=== PATIENT | male | born 1960 | race African-American/Black ===

== ENCOUNTER 2017-10-07 12:51 | Emergency (ER) | payer BC ==
[2017-10-07] MEDS ORDERED: Dexamethasone IV* 4 MG/ML 5 ML VIAL (20 MG) IVPB ONE (13:35)
[2017-10-07] MEDS ORDERED: Orphenadrine Citrate IV* 30 MG/ML 2 ML VIAL IV ONE (13:35)
[2017-10-07] MEDS ORDERED: Ketorolac INJ* 30 MG/ML 1 ML VIAL IV PUSH ONE (13:35)
[2017-10-07] MEDS ORDERED: Morphine INJ* 4 MG/ML 1 ML CARPUJECT IV ONE ×2 (13:35→15:48)
[2017-10-07 13:54] LABS: Hematocrit 47 % (42-52); Hemoglobin 15.7 g/dl (14.0-18.0); Mean Corpuscular HGB Conc 34 g/dl (31-36); Mean Corpuscular Hemoglobin 28 pg (27-31); Mean Corpuscular Volume 84 fL (80-94); Mean Platelet Volume 9 um3 (7.4-10.4); Red Blood Count 5.58 10^6/ul (4.0-5.4); Red Cell Distribution Width 13 % (10.5-15); White Blood Count 9.1 10^3/ul (3.5-10.8)
[2017-10-07 14:05] LABS: Albumin 4.4 g/dL (3.2-5.2); BUN/Creatinine Ratio 14.6 (8-20); C Reactive Protein 10.2 mg/L (< 5.00); Calcium 9.6 mg/dL (8.6-10.3); EGFR African American 113.3 (>60); EGFR Non-African American 88.1 (>60); Globulin 3.3 g/dL (2-4); Potassium 3.9 mmol/L (3.5-5.0); Total Bilirubin 0.5 mg/dL (0.2-1.0); Total Protein 7.7 g/dL (6.4-8.9)
[2017-10-07 14:09] LABS: Urine Bacteria Absent (Absent); Urine Bilirubin Negative (Negative); Urine Glucose Negative (Negative); Urine Nitrite Negative (Negative)
--- NOTE | 2017-10-07 14:23 | RAD ---
INDICATION: Low back pain. COMPARISON: There are no prior studies available for comparison. TECHNIQUE: 3 views of the lumbar spine were obtained including lateral, AP and a coned-down lateral view of the lumbar sacral junction. FINDINGS: There is a mild lumbar scoliosis convex toward the left side and straightening of the lumbar spine with decrease in the normal lumbar lordosis. No fracture is seen. There is moderate to severe degenerative disc disease at the L4-L5 and L5-S1 levels. IMPRESSION: 1. STRAIGHTENING OF THE LUMBAR SPINE. 2. MODERATE TO SEVERE DEGENERATIVE DISC DISEASE.
--- NOTE | 2017-10-07 15:13 | RAD ---
INDICATION: Low back pain. COMPARISON: Comparison is made with a prior x-ray study of the lumbar spine from October 07, 2017. TECHNIQUE: Contiguous axial sections were obtained beginning above the T12 vertebra and continuing through the L5-S1 disc space. Images were reconstructed in the sagittal and coronal planes. FINDINGS: There is a mild lumbar scoliosis convex toward the left side. There is also straightening of the lumbar spine with decrease in the normal lumbar lordosis. No fracture is seen. At the L2-L3 level there is a mild broad-based disc bulge and mild hypertrophic changes within the facet joints. No significant spinal canal narrowing or neural foraminal narrowing is seen. At the L3-L4 level there is a mild broad-based disc bulge and mild hypertrophic changes within the facet joints. There is mild spinal canal narrowing. Neural foramen appear patent on both sides. At the L4-L5 level there is a moderate broad-based disc bulge with a focal right far lateral disc protrusion. There are moderate hypertrophic changes within the facet joints. There is mild spinal canal narrowing and moderate neural foraminal narrowing on the right side with probable impingement on the L4 nerve root in the foramen. This can be better evaluated with an MRI of the lumbar spine. At the L5-S1 level there is a mild broad-based disc bulge which impinges on the S1 nerve roots in the lateral recess without displacement. There are moderate hypertrophic changes within the facet joints. There is moderate to severe neural foraminal narrowing on the left side. There are nonobstructing calculi in the lower pole of the left kidney partially obscured due to motion artifact. IMPRESSION: 1. DIFFUSE DEGENERATIVE DISC DISEASE AND FACET OSTEOARTHRITIS WITH CHANGES MOST PROMINENT AT THE L4-L5 LEVEL. IF THE PATIENT'S SYMPTOMS PERSIST RECOMMEND MR IMAGING OF THE LUMBAR SPINE WITHOUT CONTRAST FOR FURTHER EVALUATION. 2. NONOBSTRUCTING LEFT RENAL CALCULI.
[2017-10-07 16:03] VITALS: BP 139/87
--- NOTE | 2017-10-11 12:35 | ED ---
Bradley Sanchez Thomas, scribed for Gary Casiano MD on 10/07/17 at 1333 . Back Pain - HPI Summary HPI Summary: The pt is a 57 y/o M referred from his chiropractor c/o back pain that began five days ago that has been worsening in the last three days. The pain radiates down his RLE. He was evaluated at [facility] urgent care three days ago and was diagnosed with sciatica. He was prescribed muscle relaxers and Vicodin. He has also been taking ibuprofen 600mg every 5-6 hours and icing his back. The pain is constant. The pain is rated 10/10. The pain is aggravated by movement, positioning, sitting, and lying on his back. The pain is alleviated by standing up. Pt denies bladder or bowel incontinence. - History of Current Complaint Chief Complaint: EDBackInjuryPain Stated Complaint: BACK PAIN Time Seen by Provider: 10/07/17 13:10 Hx Obtained From: Patient Onset/Duration: Lasting Days - 5, Still Present, Worse Since - 3 days ago Onset/Duration: Still Present Timing: Constant Severity Initially: Moderate Severity Currently: Severe Pain Intensity: 10 Pain Scale Used: 0-10 Numeric Aggravating Symptom(s): Movement, Other - positioning, sitting, lying on back Alleviating Symptom(s): Other - Standing up Associated Signs And Symptoms: Negative: Bladder Incontinence, Bowel Incontinence - Allergies/Home Medications Allergies/Adverse Reactions: Allergies Allergy/AdvReac Type Severity Reaction Status Date / Time Penicillins Allergy Nausea And Verified 07/15/16 15:05 Vomiting PMH/Surg Hx/FS Hx/Imm Hx Previously Healthy: No Endocrine/Hematology History: Reports: Hx Diabetes Cardiovascular History: Reports: Hx Hypertension Musculoskeletal History: Reports: Hx Back Problems - Cancer History Cancer Type, Location and Year: Prostate CA - Surgical History Surgery Procedure, Year, and Place: Prostate Infectious Disease History: No Infectious Disease History: Denies: Traveled Outside the [place] in Last 30 Days - Family History Known Family History: Positive: Hypertension, Diabetes, Other - Social History Alcohol Use: Occasionally Hx Substance Use: No Substance Use Type: Reports: None Hx Tobacco Use: Yes Smoking Status (MU): Light Every Day Tobacco Smoker Review of Systems Negative: Fever Negative: Other - bowel incontinence Negative: incontinence Negative: Other - back pain All Other Systems Reviewed And Are Negative: Yes Physical Exam - Summary Physical Exam Summary: VITAL SIGNS: Reviewed. GENERAL: Patient is a well-developed and nourished male who is lying comfortable in the stretcher. Patient is not in any acute respiratory distress. HEAD AND FACE: No signs of trauma. No ecchymosis, hematomas or skull depressions. No sinus tenderness. EYES: PERRLA, EOMI x 2, No injected conjunctiva, no nystagmus. EARS: Hearing grossly intact. Ear canals and tympanic membranes are within normal limits. MOUTH: Oropharynx within normal limits. NECK: Supple, trachea is midline, no adenopathy, no JVD, no carotid bruit, no c- spine tenderness, neck with full ROM. CHEST: Symmetric, no tenderness at palpation LUNGS: Clear to auscultation bilaterally. No wheezing or crackles. CVS: Regular rate and rhythm, S1 and S2 present, no murmurs or gallops appreciated. ABDOMEN: Soft, non-tender. No signs of distention. No rebound no guarding, and no masses palpated. Bowel sounds are normal. BACK: He has a right-sided sciatic pain. He does not have any urinary or bowel dysfunction. He is unable to ambulate. The only relief of pain is when he stands up. When he sits or lays on his back, his pain increases. EXTREMITIES: FROM in all major joints, no edema, no cyanosis or clubbing. NEURO: Alert and oriented x 3. No acute neurological deficits. Speech is normal and follows commands. SKIN: Dry and warm Triage Information Reviewed: Yes Vital Signs On Initial Exam: Initial Vitals Temp Pulse Resp BP Pulse Ox 98.0 F 93 16 142/98 98 10/07/17 12:59 10/07/17 12:59 10/07/17 12:59 10/07/17 12:59 10/07/17 12:59 Vital Signs Reviewed: Yes - [place] Coma Scale Coma Scale Total: 15 Diagnostics - Vital Signs Vital Signs Temp Pulse Resp BP Pulse Ox 10/07/17 12:59 98.0 F 93 16 142/98 98 - Laboratory Result Diagrams: 10/07/17 13:40 10/07/17 13:40 Lab Statement: Any lab studies that have been ordered have been reviewed, and results considered in the medical decision making process. - Radiology L-Spine XR Xray Interpretation: No Acute Changes - 1. STRAIGHTENING OF THE LUMBAR SPINE. 2. MODERATE TO SEVERE DEGENERATIVE DISC DISEASE. ED physician has reviewed this report and agrees. Radiology Interpretation Completed By: Radiologist - CT CT L-Spine CT Interpretation: No Acute Changes - 1. DIFFUSE DEGENERATIVE DISC DISEASE AND FACET OSTEOARTHRITIS WITH CHANGES MOST PROMINENT AT THE L4-L5 LEVEL. IF THE PATIENT'S SYMPTOMS PERSIST RECOMMEND MR IMAGING OF THE LUMBAR SPINE WITHOUT CONTRAST FOR FURTHER EVALUATION. 2. NONOBSTRUCTING LEFT RENAL CALCULI. ED physician has reviewed this report and agrees. CT Interpretation Completed By: Radiologist Re-Evaluation - Re-Evaluation First Eval Re-Evaluation Time: 14:31 Change: Improved Comment: The patient's back pain has improved to 2/10. Second Eval Re-Evaluation Time: 15:48 Change: Improved Comment: The patient was able to ambulate to the bathroom. Back Pain Course/Dx - Course Assessment/Plan: The pt is a 57 y/o M referred from his chiropractor c/o back pain that began five days ago that has been worsening in the last three days. The pain radiates down his RLE. He was evaluated at [facility] urgent care three days ago and was diagnosed with sciatica. He was prescribed muscle relaxers and Vicodin. He has also been taking ibuprofen 600mg every 5-6 hours and icing his back. The pain is constant. The pain is rated 10/10. The pain is aggravated by movement, positioning, sitting, and lying on his back. The pain is alleviated by standing up. Pt denies bladder or bowel incontinence. Test results are without any significant abnormalities. Urinalysis is negative for UTI. L-Spine XR shows 1. STRAIGHTENING OF THE LUMBAR SPINE. 2. MODERATE TO SEVERE DEGENERATIVE DISC DISEASE. CT L-Spine shows 1. DIFFUSE DEGENERATIVE DISC DISEASE AND FACET OSTEOARTHRITIS WITH CHANGES MOST PROMINENT AT THE L4-L5 LEVEL. IF THE PATIENT'S SYMPTOMS PERSIST RECOMMEND MR IMAGING OF THE LUMBAR SPINE WITHOUT CONTRAST FOR FURTHER EVALUATION. 2. NONOBSTRUCTING LEFT RENAL CALCULI. In the ED course, the patient was given IV fluids, Norflex, Toradol, morphine, and Decadron. After these medications, the patient was able to ambulate to the bathroom. He still had pain, but he was able to move. Therefore , since the patient has not been having urinary or fecal dysfunction, and he is able to ambulate, he will be discharged home with follow up by Dr. Martinez. The patient is hemodynamically stable and alert and oriented x3. - Diagnoses Provider Diagnoses: Back pain Discharge - Discharge Plan Condition: Stable Disposition: HOME Prescriptions: HYDROcodone/ACETAMIN 5-325 MG* [[place] 5-325 TAB*] 1 tab PO Q6H PRN #12 tab MDD 4 PRN Reason: Pain Ibuprofen TAB* [Motrin TAB* 800 MG] 800 mg PO ONCE PRN #30 tab PRN Reason: Pain Methocarbamol [Robaxin-750 MG TAB] 750 mg PO TID #12 tab methylPREDNISolone TAB* [Medrol TAB*] 4 - 8 mg PO .SEE SHAKILA #1 shakila Patient Education Materials: Back Pain (ED) Referrals: Theo Martinez MD [Medical Doctor] - 7 Days Additional Instructions: Follow up with Dr. Martinez or another neurosurgeon within a week. Return to the emergency department for any new or worsening symptoms. The documentation as recorded by the Bradley cardenas Thomas accurately reflects the service I personally performed and the decisions made by Oh marvin Walter, MD.
== END 2017-10-07 16:04 | disposition home or self-care (01) ==
LOC: ED 12:51
DX: M54.9 Dorsalgia, unspecified (principal); E11.9 Type 2 diabetes mellitus without complications; I10 Essential (primary) hypertension; M51.36 Other intervertebral disc degeneration, lumbar region; M47.816 Spondylosis without myelopathy or radiculopathy, lumbar region; N20.0 Calculus of kidney; Z85.46 Personal history of malignant neoplasm of prostate; Z88.0 Allergy status to penicillin; F17.210 Nicotine dependence, cigarettes, uncomplicated
CPT/HCPCS: 36415; 72100; 72131; 80053; 81003; 81015; 85025; 86140; 96374; 96375; 96376; 99282; J1100; J1885; J2270; J2360

== ENCOUNTER 2017-11-11 14:11 | Emergency (ER) | payer BC ==
[2017-11-11 14:42] LABS: ABS Basophils 0.1 10^3/ul (0-0.2); ABS Eosinophils 0.1 10^3/ul (0-0.6); ABS Lymphocytes 3.7 10^3/ul (1.0-4.8); ABS Monocytes 0.5 10^3/ul (0-0.8); ABS Neutrophils 4.7 10^3/ul (1.5-7.7); ABS Nucleated RBC 0.01 10^3/ul; Eosinophil % 0.6 % (0-6); Hematocrit 42 % (42-52); Hemoglobin 14.4 g/dl (14.0-18.0); Lymphocyte % 40.8 % (25-47); Mean Corpuscular HGB Conc 35 g/dl (31-36); Mean Corpuscular Hemoglobin 29 pg (27-31); Mean Corpuscular Volume 83 fL (80-94); Mean Platelet Volume 10 um3 (7.4-10.4); Nucleated Red Blood Cells % 0.1; Platelet Count 221 10^3/ul (150-450); Red Cell Distribution Width 13 % (10.5-15); White Blood Count 9.1 10^3/ul (3.5-10.8)
--- NOTE | 2017-11-11 14:57 | RAD ---
Indication: Elevated blood pressure. History of LEFT arm pain. Comparison: No relevant prior exams available on the [facility] [place] PACS for comparison. Technique: Upright AP 1432 hours Report: Clear lungs and pleural spaces. Negative for pneumothorax. The heart, pulmonary vasculature, and mediastinal contours are unremarkable. Unremarkable osseous structures and soft tissue contours. IMPRESSION: No evidence for acute intrathoracic disease.
[2017-11-11] MEDS ORDERED: NS 0.9% 1000 ML* 1,000 ML IV ONE (15:00)
[2017-11-11 15:01] LABS: EGFR Non-African American 83.7 (>60)
[2017-11-11 15:10] LABS: INR 0.89 (0.77-1.02)
[2017-11-11] MEDS ORDERED: Ketorolac INJ* 30 MG/ML 1 ML VIAL IV ONE (15:34)
[2017-11-11] MEDS ORDERED: Ketorolac INJ* 60 MG/2 ML VIAL ONE (15:42)
--- NOTE | 2017-11-11 16:37 | RAD ---
INDICATION: LEFT upper extremity pain. COMPARISON: LEFT shoulder radiographs on the same date. TECHNIQUE: Duplex ultrasound of the LEFT internal jugular, subclavian, axillary, brachial, radial, ulnar, basilic, and cephalic veins. With the exception of the non accessible subclavian vein compressibility of venous segments assessed. Augmentation and phasicity assessed throughout. REPORT: The deep LEFT internal jugular, subclavian, axial, brachial, radial, and ulnar veins are patent. The superficial basilic and cephalic veins are patent. Patency of the RIGHT internal jugular and subclavian veins documented. IMPRESSION: No evidence for LEFT upper extremity deep venous thrombosis.
--- NOTE | 2017-11-11 16:49 | RAD ---
Indication: LEFT arm pain intermittent since early October 2017. Question arthritis. Comparison: No relevant prior exams available on the [facility] [place]. Technique: Internal rotation AP, external rotation [place], scapular Y, axillary views LEFT shoulder Report: Normal acromioclavicular and glenohumeral joint alignment. Negative for fracture. Minimal acromioclavicular joint and glenohumeral joint osteophytosis. Spurring and subchondral sclerosis at the lesser tuberosity favoring chronic subscapularis tendinopathy. No calcific tendinopathy visualized. Mild glenohumeral joint space narrowing. Unremarkable soft tissue contours. IMPRESSION: Probable chronic subscapularis tendinopathy given enthesopathy at the lesser tuberosity. Mild acromioclavicular and glenohumeral joint osteoarthritis.
--- NOTE | 2017-11-11 16:53 | RAD ---
INDICATION: Intermittent LEFT arm pain since October 2017. Question arthritis. COMPARISON: No relevant prior exams available on the [facility] PACS for comparison. TECHNIQUE: AP, lateral, and oblique views LEFT elbow. REPORT: Normal articular alignment. No significant arthropathic change. Negative for joint effusion or fracture. Unremarkable soft tissue contours. IMPRESSION: Negative radiographic exam of the LEFT elbow.
--- NOTE | 2017-11-11 17:20 | ED ---
Yolanda Sanchez Julia, scribed for Peterson Hernandez MD on 11/11/17 at 1621 . Upper Extremity Pain - HPI Summary HPI Summary: This patient is a 57 year old M presenting to [facility] accompanied by with a chief complaint of constant LUE pain for past couple months. The patient rates the pain 8/10 in severity on average. Symptoms aggravated with elbow flexion extension. Symptoms mildly alleviated by muscle relaxation medication. Patient reports elevated BP for past week, back pain and sciatica secondary to vertebral disc fracture and recent changes in blood glucose levels. Patient denies neck injury or pain, sore throat, changes in appetite, nausea, and diaphoresis. Patient is concerned that he may be experiencing a CT due to arm pain and elevated BP. - History of Current Complaint Chief Complaint: EDChestPainROMI Stated Complaint: HIGH BLOOD PRESSURE/LT ARM PAIN Time Seen by Provider: 11/11/17 14:32 Hx Obtained From: Patient Mechanism Of Injury: Unknown Onset/Duration: Still Present Timing: Constant Aggravating Factor(s): Flexion, Extension Alleviating Factor(s): Other - mild relief with muscle relaxers Associated Signs & Symptoms: Positive: Other - elevated BP for past week, back pain and sciatica secondary to vertebral disc fracture and recent changes in blood glucose levels - Allergies/Home Medications Allergies/Adverse Reactions: Allergies Allergy/AdvReac Type Severity Reaction Status Date / Time Penicillins Allergy Nausea And Verified 10/15/17 13:39 Vomiting PMH/Surg Hx/FS Hx/Imm Hx Endocrine/Hematology History: Reports: Hx Diabetes - PRE Cardiovascular History: Reports: Hx Hypertension - BORERLINE ON MEDS Denies: Hx Pacemaker/ICD History: Denies: Hx Renal Disease Musculoskeletal History: Reports: Hx Back Problems Sensory History: Denies: Hx Hearing Aid Psychiatric History: Reports: Hx Panic Disorder - Cancer History Cancer Type, Location and Year: Prostate CA - Surgical History Surgery Procedure, Year, and Place: Prostate REMOVAL 2004 [facility] Infectious Disease History: No Infectious Disease History: Denies: Traveled Outside the [place] in Last 30 Days - Family History Known Family History: Positive: Hypertension, Diabetes - Social History Alcohol Use: Occasionally Hx Substance Use: No Substance Use Type: Reports: None Hx Tobacco Use: Yes Smoking Status (MU): Light Every Day Tobacco Smoker Review of Systems Negative: Skin Diaphoresis Negative: Sore Throat Positive: Other - recent elevated BP Positive: Other - negative - changes in appetite. Negative: Nausea Musculoskeletal: Other - negative - neck pain Positive: Other - LUE pain, back pain, and sciatica All Other Systems Reviewed And Are Negative: Yes Physical Exam - Summary Physical Exam Summary: General: well-appearing, no pain distress Skin: warm, color reflects adequate perfusion, dry Head: normal Eyes: EOMI, JACQUELIN ENT: normal Neck: supple, nontender Respiratory: CTA, breath sounds present Cardiovascular: RRR Abdomen: soft, nontender Bowel: present Musculoskeletal: mild tenderness of L upper inner arm, strength/ROM intact Neurological: normal, sensory/motor intact, A&O x3 Psychological: affect/mood appropriate Triage Information Reviewed: Yes Vital Signs On Initial Exam: Initial Vitals Temp Pulse Resp BP Pulse Ox 98.8 F 90 18 150/96 98 11/11/17 14:19 11/11/17 14:19 11/11/17 14:19 11/11/17 14:19 11/11/17 14:19 Vital Signs Reviewed: Yes - [place] Coma Scale Coma Scale Total: 15 Diagnostics - Vital Signs Vital Signs Temp Pulse Resp BP Pulse Ox 11/11/17 15:59 79 15 97 11/11/17 15:30 84 16 141/93 99 11/11/17 15:00 152/93 11/11/17 14:52 97.6 F 74 18 134/76 96 11/11/17 14:39 99 11/11/17 14:28 89 10 150/96 98 11/11/17 14:22 91 98 11/11/17 14:19 98.8 F 90 18 150/96 98 - Laboratory Lab Results: Lab Results 11/11/17 11/11/17 11/11/17 Range/Units 14:35 14:35 14:35 WBC (3.5-10.8) 10^3/ul RBC (4.0-5.4) 10^6/ul Hgb (14.0-18.0) g/dl Hct (42-52) % MCV (80-94) fL MCH (27-31) pg MCHC (31-36) g/dl RDW (10.5-15) % Plt Count (150-450) 10^3/ul MPV (7.4-10.4) um3 Neut % (Auto) (38-83) % Lymph % (Auto) (25-47) % [place] % (Auto) (1-9) % Eos % (Auto) (0-6) % Baso % (Auto) (0-2) % Absolute Neuts (auto) (1.5-7.7) 10^3/ul Absolute Lymphs (auto) (1.0-4.8) 10^3/ul Absolute Monos (auto) (0-0.8) 10^3/ul Absolute Eos (auto) (0-0.6) 10^3/ul Absolute Basos (auto) (0-0.2) 10^3/ul Absolute Nucleated RBC 10^3/ul Nucleated RBC % INR (Anticoag Therapy) 0.89 (0.77-1.02) APTT 30.3 (26.0-36.3) seconds D-Dimer, Quantitative < 200 (Less Than 230) ng/mL Sodium 133 (133-145) mmol/L Potassium 3.7 (3.5-5.0) mmol/L Chloride 100 L (101-111) mmol/L Carbon Dioxide 24 (22-32) mmol/L Anion Gap 9 (2-11) mmol/L BUN 11 (6-24) mg/dL Creatinine 0.93 (0.67-1.17) mg/dL Est GFR ( Amer) 107.7 (>60) Est GFR (Non-Af Amer) 83.7 (>60) BUN/Creatinine Ratio 11.8 (8-20) Glucose 347 H (70-100) mg/dL Lactic Acid (0.5-2.0) mmol/L Calcium 8.9 (8.6-10.3) mg/dL Magnesium 1.9 (1.9-2.7) mg/dL Total Bilirubin 0.40 (0.2-1.0) mg/dL AST 22 (13-39) U/L ALT 25 (7-52) U/L Alkaline Phosphatase 79 (34-104) U/L Total Creatine Kinase 223 (10-223) U/L CK-MB (CK-2) 1.3 (0.6-6.3) ng/mL Troponin I 0.00 (<0.04) ng/mL C-Reactive Protein 14.49 H (< 5.00) mg/L B-Natriuretic Peptide 22 ( - 100) pg/mL Total Protein 6.9 (6.4-8.9) g/dL Albumin 3.9 (3.2-5.2) g/dL Globulin 3.0 (2-4) g/dL Albumin/Globulin Ratio 1.3 (1-3) Lipase 31 (11.0-82.0) U/L TSH 1.07 (0.34-5.60) mcIU/mL Thyroxine (T4) 8.23 (6.09-12.23) mcg/mL 11/11/17 11/11/17 Range/Units 14:35 14:35 WBC 9.1 (3.5-10.8) 10^3/ul RBC 5.00 (4.0-5.4) 10^6/ul Hgb 14.4 (14.0-18.0) g/dl Hct 42 (42-52) % MCV 83 (80-94) fL MCH 29 (27-31) pg MCHC 35 (31-36) g/dl RDW 13 (10.5-15) % Plt Count 221 (150-450) 10^3/ul MPV 10 (7.4-10.4) um3 Neut % (Auto) 51.6 (38-83) % Lymph % (Auto) 40.8 (25-47) % [place] % (Auto) 5.9 (1-9) % Eos % (Auto) 0.6 (0-6) % Baso % (Auto) 1.1 (0-2) % Absolute Neuts (auto) 4.7 (1.5-7.7) 10^3/ul Absolute Lymphs (auto) 3.7 (1.0-4.8) 10^3/ul Absolute Monos (auto) 0.5 (0-0.8) 10^3/ul Absolute Eos (auto) 0.1 (0-0.6) 10^3/ul Absolute Basos (auto) 0.1 (0-0.2) 10^3/ul Absolute Nucleated RBC 0.01 10^3/ul Nucleated RBC % 0.1 INR (Anticoag Therapy) (0.77-1.02) APTT (26.0-36.3) seconds D-Dimer, Quantitative (Less Than 230) ng/mL Sodium (133-145) mmol/L Potassium (3.5-5.0) mmol/L Chloride (101-111) mmol/L Carbon Dioxide (22-32) mmol/L Anion Gap (2-11) mmol/L BUN (6-24) mg/dL Creatinine (0.67-1.17) mg/dL Est GFR ( Amer) (>60) Est GFR (Non-Af Amer) (>60) BUN/Creatinine Ratio (8-20) Glucose (70-100) mg/dL Lactic Acid 1.9 (0.5-2.0) mmol/L Calcium (8.6-10.3) mg/dL Magnesium (1.9-2.7) mg/dL Total Bilirubin (0.2-1.0) mg/dL AST (13-39) U/L ALT (7-52) U/L Alkaline Phosphatase (34-104) U/L Total Creatine Kinase (10-223) U/L CK-MB (CK-2) (0.6-6.3) ng/mL Troponin I (<0.04) ng/mL C-Reactive Protein (< 5.00) mg/L B-Natriuretic Peptide ( - 100) pg/mL Total Protein (6.4-8.9) g/dL Albumin (3.2-5.2) g/dL Globulin (2-4) g/dL Albumin/Globulin Ratio (1-3) Lipase (11.0-82.0) U/L TSH (0.34-5.60) mcIU/mL Thyroxine (T4) (6.09-12.23) mcg/mL Result Diagrams: 11/11/17 14:35 11/11/17 14:35 Lab Statement: Any lab studies that have been ordered have been reviewed, and results considered in the medical decision making process. - Radiology L Elbow XR Radiology Interpretation Completed By: Radiologist - Negative radiographic exam of the LEFT elbow. ED Physician has reviewed this report. L Shoulder XR Radiology Interpretation Completed By: Radiologist - Probable chronic subscapularis tendinopathy given enthesopathy at the lesser tuberosity. Mild acromioclavicular and glenohumeral joint osteoarthritis. ED Physician has reviewed this report. CXR Radiology Interpretation Completed By: Radiologist - No evidence for acute intrathoracic disease. ED Physician has reviewed this report. - EKG 14:14 Cardiac Rate: NL EKG Rhythm: Sinus Rhythm - at 90 ST Segment: Normal Ectopy: None - Additional Comments Diagnostic Additional Comments: Venous Doppler US reveals No evidence for LEFT upper extremity deep venous thrombosis. ED physician has reviewed this report. Course/Dx - Course Course Of Treatment: LEFT ARM PAIN DECREASED IN ED AFTER TORADOL. DISCUSSED ADMISSION FOR CARDIAC EVAL. PATIENT DECLINED ADMISSION. HE HAS A STRESS TEST SCHEDULED FOR 11/20/17 WITH HIS PMD. F/U PMD; RETURN IF WORSE. - Diagnoses Provider Diagnoses: Left arm pain, Hyperglycemia, unspecified, Low back pain, Hypertension Discharge - Discharge Plan Condition: Stable Disposition: HOME Patient Education Materials: Hypertension (ED), Chronic Back Pain (ED), Diabetic Hyperglycemia (ED), Arm Pain (ED) Referrals: Jamie Hopkins MD [Primary Care Provider] - Additional Instructions: FOLLOW UP WITH YOUR DOCTOR. RETURN TO THE EMERGENCY DEPARTMENT FOR ANY WORSENING OF YOUR CONDITION; CHEST PAIN, SHORTNESS OF BREATH, YOU FEEL ILL, WEAKNESS, NUMBNESS, DIFFICULTY CONTROLLING BOWEL OR BLADDER OR QUESTIONS OR CONCERNS. The documentation as recorded by the Yolanda cardenas Julia accurately reflects the service I personally performed and the decisions made by me, Peterson Hernandez MD.
[2017-11-11] MEDS ORDERED: oxyCODONE/Acetamin 5/325 MG* TAB PO ONE (17:22)
[2017-11-11] MEDS ORDERED: Cyclobenzaprine TAB* 10 MG PO ONE (17:23)
[2017-11-11 17:28] LABS: Urine Appearance Clear; Urine Blood Negative (Negative); Urine Color Yellow; Urine Ketones Negative (Negative); Urine Protein 1+(30 mg/dL) (Negative); Urine Specific Gravity 1.024 (1.010-1.030); Urine Urobilinogen Negative (Negative)
[2017-11-11 17:49] VITALS: BP 132/81
== END 2017-11-11 17:48 | disposition home or self-care (01) ==
LOC: ED 14:11
DX: M79.602 Pain in left arm (principal); R73.9 Hyperglycemia, unspecified; I10 Essential (primary) hypertension; M54.9 Dorsalgia, unspecified; F17.210 Nicotine dependence, cigarettes, uncomplicated; M54.5 Low back pain
CPT/HCPCS: 36415; 71045; 80053; 81003; 81015; 82550; 82553; 83605; 83690; 83735; 83880; 84436; 84443; 84484; 85025; 85379; 85610; 85730; 86140; 93005; 96374; 99283; A9270-GY; J1885

== ENCOUNTER 2019-01-18 09:31 | Emergency (ER) | payer BC ==
--- NOTE | 2019-01-18 09:37 | UC ---
Elbow Pain - HPI Summary HPI Summary: 58 yo male presents with RIGHT elbow pain. He is right handed. He tells me that over the last 2 months he has been having worsening left lateral elbow pain. Pain worse with lifting and movement. Better with rest and naproxen. About 4 months ago he started doing crossfit and has been very active with this almost every day of the week. He bought an elbow brace and has been using this while working out, but has had little relief. 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 Denies specific injury, numbness, tingling. - History of Current Complaint Stated Complaint: ELLBOW PAIN Time Seen by Provider: 01/18/19 09:36 Hx Obtained From: Patient Severity Initially: Moderate Severity Currently: Severe Pain Intensity: 8 Pain Scale Used: 0-10 Numeric - Allergies/Home Medications Allergies/Adverse Reactions: Allergies Allergy/AdvReac Type Severity Reaction Status Date / Time MS Penicillins [Penicillins] Allergy Nausea And Verified 10/15/17 13:39 Vomiting Home Medications: Home Medications Acetaminophen [Tylenol] 650 mg PO Q6H PRN 01/18/19 [History Confirmed 01/18/19] Cartilage/Collagen/Bor/Hyalur [Joint Health Tablet] 1 tab PO 01/18/19 [History] Menthol [Sore Muscle Rub] 1 applic TOPICAL BID PRN 01/18/19 [History Confirmed 01/18/19] Naproxen [Naprosyn 500 mg tab] 500 mg PO BID PRN 01/18/19 [History Confirmed 08/29] PMH/Surg Hx/FS Hx/Imm Hx GI/ History: Gastroesophageal Reflux - Surgical History Surgical History: Yes Surgery Procedure, Year, and Place: Prostate REMOVAL 2004 [place] - Family History Known Family History: Positive: Hypertension, Diabetes, Other - Social History Alcohol Use: Occasionally Substance Use Type: None Smoking Status (MU): Light Every Day Tobacco Smoker - Immunization History Most Recent Tetanus Shot: last 10 yrs Review of Systems All Other Systems Reviewed And Are Negative: Yes Constitutional: Positive: Negative Skin: Positive: Negative Respiratory: Positive: Negative Cardiovascular: Positive: Negative Neurovascular: Positive: Negative Musculoskeletal: Positive: Other: - Right elbow pain Neurological: Positive: Negative Psychological: Positive: Negative Physical Exam - Summary Physical Exam Summary: GENERAL: NAD. WDWN. No pain distress. SKIN: No rashes, sores, lesions, or open wounds. CHEST: No accessory muscle use. Breathing comfortably and in no distress. CV: Pulses intact radial and ulnar. Cap refill <2seconds MSK: RIGHT ELBOW: FROM. Lateral epicondyle with mild edema and moderate TTP. Pain worse with middle finger extension against resistance. Positive chair lift test. Strength 5/5 including change person strength. NEURO: Alert. Sensations intact hand and all fingers. PSYCH: Age appropriate behavior. Triage Information Reviewed: Yes Vital Signs: Vital Signs: Temp Pulse Resp BP Pulse Ox 97.1 F 69 16 171/97 99 01/18/19 09:39 01/18/19 09:39 01/18/19 09:39 01/18/19 09:39 01/18/19 09:39 Vital Signs Reviewed: Yes Elbow Pain Course/Dx - Course Course Of Treatment: Suspect lateral epicondylitis that is being chronically inflamed due to his workout schedule. I had a long conversation with the pt that his pain will likely continue until he is able to rest and apply ice to this - including refraining from the gym/heavy lifting. Advised to continue naproxen and try an OTC epicondylitis brace. He says he will take the next 7-10 days off from the gym and therefore will try him with a short course of steroids to decrease inflammation. F/u with [facility] if no improvement. - Differential Dx/Diagnosis Provider Diagnosis: Lateral epicondylitis of elbow Discharge - Sign-Out/Discharge Documenting (check all that apply): Patient Departure All imaging exams completed and their final reports reviewed: No Studies - Discharge Plan Condition: Stable Disposition: HOME Prescriptions: RX: predniSONE TAB* [Deltasone 20 MG TAB*] 20 mg PO DAILY #10 tab Patient Education Materials: Tennis Elbow (ED) Referrals: Jamie Hopkins MD [Primary Care Provider] - [facility] [Provider Group] - As Soon As Possible Additional Instructions: If you develop a fever, shortness of breath, chest pain, new or worsening symptoms - please call your PCP or go to the ED. Your blood pressure was high at todays visit. Please see your primary provider within 4 weeks for recheck and re-evaluation. 1) Rest and ice your elbow as much as possible. Take naproxen twice a day 2) Stop heavy lifting/activities with that arm 3) Please call [facility] at the number below to schedule an appointment for further evaluation and treatment - Billing Disposition and Condition Condition: STABLE Disposition: Home
[2019-01-18 09:46] VITALS: BP 171/97
== END 2019-01-18 10:18 | disposition home or self-care (01) ==
LOC: UCEAST 09:31
DX: M77.11 Lateral epicondylitis, right elbow (principal); Z88.0 Allergy status to penicillin; F17.200 Nicotine dependence, unspecified, uncomplicated
CPT/HCPCS: 99211; G0463

== ENCOUNTER 2019-10-04 08:47 | Emergency (ER) | payer BC ==
[2019-10-04 09:05] VITALS: BP 161/95
[2019-10-04] MEDS ORDERED: Indomethacin CAP* 25 MG CAP PO ONE (09:24)
--- NOTE | 2019-10-04 09:34 | ED ---
Lower Extremity - HPI Summary HPI Summary: 59 yo BM h/o pre-diabetes p/w left foot pain x 2 days, feels better with taking off boots, red, exquisitily TTP, denies injury to foot - History of Current Complaint Chief Complaint: UCLowerExtremity Stated Complaint: PAIN IN FOOT Time Seen by Provider: 10/04/19 09:00 Pain Intensity: 8 - Allergies/Home Medications Allergies/Adverse Reactions: Allergies Allergy/AdvReac Type Severity Reaction Status Date / Time MS Penicillins [Penicillins] Allergy Nausea And Verified 10/15/17 13:39 Vomiting Home Medications: Home Medications Cyclobenzaprine TAB* [Flexeril 10 MG TAB*] 10 mg PO QPM MDD 10mg 10/04/19 [ History Confirmed 10/04/19] PMH/Surg Hx/FS Hx/Imm Hx Previously Healthy: Yes Endocrine/Hematology History: Reports: Hx Diabetes - -no meds Cardiovascular History: Reports: Hx Hypertension Denies: Hx Pacemaker/ICD Respiratory History: Denies: Hx Chronic Obstructive Pulmonary Disease (COPD) History: Denies: Hx Renal Disease Musculoskeletal History: Reports: Hx Back Problems Sensory History: Denies: Hx Hearing Aid Psychiatric History: Reports: Hx Panic Disorder - Cancer History Cancer Type, Location and Year: Prostate CA - Surgical History Surgery Procedure, Year, and Place: Prostate REMOVAL 2004 [place], back surgery Infectious Disease History: No Infectious Disease History: Reports: Hx Shingles - 3 weeks ago Denies: Traveled Outside the [place] in Last 30 Days - Family History Known Family History: Positive: Hypertension, Diabetes, Other - Social History Alcohol Use: Daily Hx Substance Use: No Substance Use Type: Reports: None Hx Tobacco Use: Yes Smoking Status (MU): Light Every Day Tobacco Smoker Type: Cigarettes Review of Systems Constitutional: Negative Eyes: Negative ENT: Negative Cardiovascular: Negative Respiratory: Negative Gastrointestinal: Negative Musculoskeletal: Other Positive: Other - left foot pain Neurological: Negative Psychological: Normal All Other Systems Reviewed And Are Negative: Yes Physical Exam - Summary Physical Exam Summary: Reviewed: Yes Eye Exam: Normal Eyes: Positive: Conjunctiva Clear ENT: Positive: Normal ENT inspection Neck: Positive: Supple Respiratory Exam: Normal Respiratory: Positive: Lungs clear Cardiovascular Exam: Normal Cardiovascular: Positive: RRR Abdomen: NT/ND Musculoskeletal Exam: Moderate left dorsum of foot tenderness, erythema and warmth, ROM intact, pulses intact Neurological Exam: Normal Psychological Exam: Normal Skin Exam: Normal Vital Signs On Initial Exam: Initial Vitals Temp Pulse Resp BP Pulse Ox 36.9 C 74 16 161/95 100 10/04/19 08:56 10/04/19 08:56 10/04/19 08:56 10/04/19 08:56 10/04/19 08:56 Diagnostics - Vital Signs Vital Signs Temp Pulse Resp BP Pulse Ox 10/04/19 08:56 36.9 C 74 16 161/95 100 - Laboratory Lab Statement: Any lab studies that have been ordered have been reviewed, and results considered in the medical decision making process. Lower Extremity Course/Dx - Course Assessment/Plan: left foot pain- XR of left foot neg for fx or dislocation, clainically may be gout, will tx with indomethacin, limit seafood and uric acid producing compounds - Diagnoses Provider Diagnoses: Left foot pain Discharge ED - Sign-Out/Discharge Documenting (check all that apply): Patient Departure All imaging exams completed and their final reports reviewed: Yes - Discharge Plan Condition: Stable Disposition: HOME Prescriptions: Indomethacin CAP* [Indocin CAP*] 50 mg PO TID 10 Days #30 cap Patient Education Materials: Metatarsalgia (DC), Gout (ED) Referrals: Jamie Hopkins MD [Primary Care Provider] - - Billing Disposition and Condition Condition: STABLE Disposition: Home
== END 2019-10-04 10:20 | disposition home or self-care (01) ==
LOC: UCEAST 08:47
DX: M25.572 Pain in left ankle and joints of left foot (principal); I10 Essential (primary) hypertension; E11.9 Type 2 diabetes mellitus without complications; F17.210 Nicotine dependence, cigarettes, uncomplicated; Z85.46 Personal history of malignant neoplasm of prostate; Z88.0 Allergy status to penicillin
CPT/HCPCS: 36415; 84550; 99212; A9270-GY; G0463